=== PATIENT | female | born 1935 | race Caucasian/White ===

== ENCOUNTER → 2023-05-07 07:45 | Outpatient (REF) | payer MEDICARE, OTHER, SELFPAY ==
[2023-05-07 08:19] LABS: % Basophils 0.7 % (0-2); % Eosinophils 3.1 % (0-6); % Immature Granulocytes 0.4 % (0-0.5); % Lymphocytes 34.1 % (20.5-51.1); % Monocytes 7.9 % (1.7-9.3); % Neutrophils 53.8 % (42.2-75.2); Absolute Basophils 0.1 10^3/uL (0-0.2); Absolute Eosinophils 0.3 10^3/uL (0-0.7); Absolute Lymphocytes 2.9 10^3/uL (1.2-3.4); Absolute Monocytes 0.7 10^3/uL (0.1-0.6); Absolute Neutrophils 4.5 10^3/uL (1.4-6.5); Hematocrit 43.6 % (37.0-47.0); Hemoglobin 14.2 g/dL (12.0-16.0); Mean Corp Hgb Conc. 32.6 g/dL (33.0-37.0); Mean Corpuscular Hgb 30.2 pg (27.0-31.0); Mean Corpuscular Volume 92.8 fL (81.0-99.0); Nucleated Red Blood Cells % 0 %; Platelet Count 201 10^3/uL (130-400); Red Cell Dist. Width 14.2 % (11.5-14.5); White Blood Cell Count 8.4 10^3/uL (4.8-10.8)
[2023-05-07 08:42] LABS: ALT (SGPT) 28 U/L (0-35); AST (SGOT) 28 U/L (14-36); Albumin 4.4 g/dl (3.5-5.0); Alkaline Phosphatase 60 U/L (38-126); Blood Urea Nitrogen 15 mg/dl (7-17); Carbon Dioxide 31 mmol/L (22-30); Chloride 96 mmol/L (98-107); Glucose 111 mg/dl (70-99); HDL Cholesterol 79 mg/dl; LDL Cholesterol, Calculated 43 mg/dl; Potassium 4.3 mmol/L (3.5-5.1); Sodium 132 mmol/L (135-145); Total Bilirubin 0.7 mg/dl (0.2-1.3); Total Cholesterol 148 mg/dl (50-199); Total Protein 6.5 g/dl (6.3-8.2); Triglyceride 133 mg/dl (10-149); Very Low Density Lipoprotein 26 mg/dl (0-30); eGFR > 60.00
[2023-05-07 09:12] LABS: TSH Reflex To Free T4 0.68 uIU/ml (0.47-4.68)
== END ==
LOC: REG 07:45
PROVIDERS: ATTENDING PHYSICIAN Registered Nurse
DX: I42.0 Dilated cardiomyopathy (principal); I51.89 Other ill-defined heart diseases; I11.9 Hypertensive heart disease without heart failure; E78.5 Hyperlipidemia, unspecified
CPT/HCPCS: 36415; 80053; 80061; 84443; 85025

== ENCOUNTER → 2023-05-08 10:43 | Outpatient (REF) | payer MEDICARE, OTHER, SELFPAY ==
[2023-05-08 11:21] LABS: Blood Urea Nitrogen 16 mg/dl (7-17); Calcium 9.1 mg/dl (8.4-10.2); Carbon Dioxide 30 mmol/L (22-30); Chloride 96 mmol/L (98-107); Glucose 99 mg/dl (70-99); Potassium 4.4 mmol/L (3.5-5.1); Sodium 128 mmol/L (135-145); eGFR > 60.00
[2023-05-08 14:32] LABS: Osmolality Urine 315 mOsm/kg (300-900)
[2023-05-08 15:49] LABS: Urine Sodium 36 mmol/L (30-90)
== END ==
LOC: REG 10:43
PROVIDERS: ATTENDING PHYSICIAN Registered Nurse
DX: E87.1 Hypo-osmolality and hyponatremia (principal)
CPT/HCPCS: 36415; 80048; 83935; 84300

== ENCOUNTER 2023-05-09 11:02 | Emergency (ER) | payer MEDICARE, OTHER, SELFPAY ==
[2023-05-09 11:08] VITALS: BP 160/88
[2023-05-09 11:51] VITALS: BP 146/79
[2023-05-09 11:53] VITALS: BMI 19.7
[2023-05-09 12:12] LABS: % Basophils 0.6 % (0-2); % Eosinophils 1.8 % (0-6); % Immature Granulocytes 0.2 % (0-0.5); % Monocytes 6.9 % (1.7-9.3); % Neutrophils 59.5 % (42.2-75.2); Absolute Basophils 0.1 10^3/uL (0-0.2); Absolute Eosinophils 0.2 10^3/uL (0-0.7); Absolute Lymphocytes 2.9 10^3/uL (1.2-3.4); Absolute Monocytes 0.6 10^3/uL (0.1-0.6); Absolute Neutrophils 5.5 10^3/uL (1.4-6.5); Hematocrit 43.2 % (37.0-47.0); Hemoglobin 14.4 g/dL (12.0-16.0); Mean Corp Hgb Conc. 33.3 g/dL (33.0-37.0); Mean Corpuscular Hgb 30.4 pg (27.0-31.0); Mean Corpuscular Volume 91.1 fL (81.0-99.0); Nucleated Red Blood Cells % 0 %; Platelet Count 200 10^3/uL (130-400); Red Blood Cell Count 4.74 10^6/uL (4.20-5.40); Red Cell Dist. Width 13.8 % (11.5-14.5); White Blood Cell Count 9.3 10^3/uL (4.8-10.8)
[2023-05-09 12:25] LABS: ALT (SGPT) 32 U/L (0-35); AST (SGOT) 33 U/L (14-36); Albumin 4.6 g/dl (3.5-5.0); Alkaline Phosphatase 61 U/L (38-126); Blood Urea Nitrogen 18 mg/dl (7-17); Calcium 9.1 mg/dl (8.4-10.2); Carbon Dioxide 28 mmol/L (22-30); Chloride 94 mmol/L (98-107); Estimated Creatinine Clearance 56 ml/min; Glucose 109 mg/dl (70-99); Potassium 4.4 mmol/L (3.5-5.1); Sodium 127 mmol/L (135-145); Total Bilirubin 0.8 mg/dl (0.2-1.3); Total Protein 6.7 g/dl (6.3-8.2); eGFR > 60.00
[2023-05-09 12:30] LABS: Osmolality Serum 273 mOsm/kg (275-300)
--- NOTE | 2023-05-09 13:15 | ED.GENMED ---
History of Present Illness
General
Chief Complaint: Abnormal Lab Value
Source: patient
Time Seen by Provider: 05/09/23 11:37
Travel History
Have you had any contact with someone who has COVID-19?: No
Do you have any symptoms of coronavirus? Fever > 100 degrees, chills, cough, shortness of breath, sore throat, loss of taste or smell, muscle aches, or headache?: No
History of Present Illness
History of Present Illness:
87-year-old female with past medical history of hypertension presenting the emergency department for evaluation of low sodium that was reportedly found on outpatient lab done a few days ago, had repeat labs done yesterday which showed continued low
sodium so was called by primary care provider who advised patient go to the ER for further evaluation. Patient states she is completely asymptomatic and has no other concerns at this time and states that if her provider had not told her to come to
the emergency department she would be at home presently. Patient denies any fevers or recent illnesses, nausea, vomiting, change in oral intake. Patient states that she does not use sodium when she cooks and tries to eat a low-sodium diet due to
her history of hypertension.
Past History
Past History
ED Past Medical History: Cancer and HTN
ED Past Surgical History: Gynecological and Other (Right axillary lymph node dissection)
Social History
Tobacco: Non-smoker
Alcohol: Occasional
Drug: None
Personal:
Living: with family
Employment: Retired
Review of Systems
Review of Systems
All Other Systems: ROS reviewed and negative except as documented in HPI and ROS
Phy Exam
Physical Exam
Physical Exam:
GENERAL: Alert , in no apparent distress
EYE: conjunctiva clear
NECK: Supple, no significant adenopathy.
ENT: o/p clr, mmm.
CARDIAC: Regular rate and rhythm
LUNGS: Clear breath sounds bilaterally, no acute respiratory distress, no wheezes/rales/rhonchi
NEUROLOGICAL: Alert and oriented
SKIN: Warm and dry, skin intact.
MUSCULOSKELETAL: well perfused.
PSYCH: Normal and appropriate interaction.
Scores
Heart Failure Risk
Heart Failure Risk Score: Not Applicable
Heart Score for Chest Pain Patients
STEMI patient?: Not applicable
Withdrawal Assessment of Alcohol
Withdrawal Assessment Completed?: Not applicable
Course
Orders/Labs/Results
Orders:
Orders
05/09/23 11:38
Electrocardiogram (*1) Urgent
Reason for Study: Other
Other Reason for Exam: hyponatremia
EKG- Treatment ONCE
Urinalysis Reflex To Culture Urgent
Date Specimen was Collected: 05/09/23
Time Specimen was Collected: 13:16
Urine Sodium Urgent
Date Specimen was Collected: 05/09/23
Time Specimen was Collected: 13:16
05/09/23 11:51
Complete Blood Count/With Diff Urgent
Comprehensive Metabolic Panel Urgent
Serum Osmolality Urgent
Abnormal Lab Results
05/09/23
11:51
Sodium 127 L mmol/L
(135-145)
Chloride 94 L mmol/L
(98-107)
BUN 18 H mg/dl
(7-17)
Creatinine 0.5 L mg/dL
(0.6-1.0)
Glucose 109 H mg/dl
(70-99)
Serum Osmolality 273 L mOsm/kg
(275-300)
05/09/23 11:51
05/09/23 11:51
Vital Signs
Initial and Last Documented VS:
Initial Vital Signs
Temp Pulse Resp BP Pulse Ox
98.2 F 84 18 160/88 98
05/09/23 11:08 05/09/23 11:08 05/09/23 11:08 05/09/23 11:08 05/09/23 11:08
Last Documented Vital Signs
Temp Pulse Resp BP Pulse Ox
98.2 F 84 18 146/79 97
05/09/23 11:08 05/09/23 11:08 05/09/23 11:08 05/09/23 11:51 05/09/23 11:51
MDM/Problems Addressed
Differential Diagnosis Includes:
Dehydration, SIADH, renal dysfunction, volume overload, medication interaction
MDM/Problems Addressed:
87-year-old female presenting emergency department for evaluation at the request of her primary care provider after she had low sodium on 2 separate labs done as an outpatient. Patient is asymptomatic and without concerns at this time. I reviewed
her lab work which showed an initial sodium of 132 on the and yesterday was down to 128. She had normal urine osmolality and a normal urine sodium yesterday as well. Overall I am less suspicious for an emergent pathology lack of symptoms and
that this can continue to be managed as an outpatient but will recheck labs and discuss with nephrology if need be.
*Pulse Oximetry
Patient hypoxic: no
*EKG
Interpreted by ED Provider?: Yes
Comparison EKG: changes noted
Heart Rate: 80
Rate: normal
Rhythm: sinus and PAC's
QRS Pattern: left vent hypertrophy
*Critical Care Note
Total Time (30-74mins, 75-104mins- exclusive of procedures): Not Applicable
Data Reviewed
Review of Other/Old Records Reveals: Labs
Patient Management
Discussion with other providers: PCP and Consulting Sales Executive
Escalation/DeEscalation of care consider admission/obs:
Patient's sodium today is 127 which is slightly lower than 128 from yesterday. Given patient is asymptomatic I still feel she does not need to be admitted so case was discussed with the on-call student affairs vice president who agrees that as long as patient is
asymptomatic and be discharged home but does recommend a 40 ounce per day fluid restriction and if needed can be treated with 20 mg of Lasix daily as well. Given patient is asymptomatic and not showing any signs of volume overload I did not feel
comfortable with sending the patient home with Lasix myself. I notified patient's primary care provider, Robbi Workman, of nephrology's recommendations and he has an appointment with the patient for early next week. Patient is aware of return
precautions emergency department as well as nephrology's recommendations. She feels comfortable with being discharged home and will return to the emergency department with any other concerns.
ED Attending Note
-
Portions of this chart may have been created with voice recognition software.� Occasional wrong word or��sound alike� substitutions may have occurred due to the inherent limitations of voice recognition software.
Discharge Plan
Departure
Patient Disposition: Home (Routine Discharge)
Date of Disposition: 05/09/23
Time of Disposition: 13:15
Patient with high blood pressure during this ER visit?: Yes
Discharge Problem:
Hyponatremia
Instructions: Hyponatremia (DC)
Prescriptions:
No Action
cyanocobalamin (vitamin B-12) [Vitamin B-12] 1,000 mcg Tablet
1,000 mcg PO DAILY
ascorbic acid (vitamin C) [Vitamin C] 500 MG tablet
500 mg PO DAILY
cholecalciferol (vitamin D3) 5,000 UNIT tablet,disintegrating
5,000 unit PO DAILY
Farxiga 10 mg Tablet
10 mg PO DAILY Qty: 30 0RF
atorvastatin 40 mg Tablet
40 mg PO QPM Qty: 30 0RF
aspirin 81 mg Tablet,Chewable
81 mg PO DAILY Qty: 60 0RF
lisinopril 5 mg Tablet
5 mg PO DAILY Qty: 30 0RF
metoprolol succinate 25 mg Tablet Extended Release 24 Hr
37.5 mg PO BID Qty: 90 0RF
Referrals:
Dinesh Workman CRNP [Family Provider] - Follow up in 1 week
Interventions
Interventions:
*Risk Screen - Suicide Last Done: 05/09/23 11:08
*General Assessment Last Done: 05/09/23 11:08
*Neglect/Abuse Screening Last Done: 05/09/23 11:08
*ED COVID-19 Vaccine History Last Done: 05/09/23 11:08
== END 2023-05-09 13:39 | disposition home or self-care (01) ==
LOC: EMR 11:02
PROVIDERS: Physician Assistant Medical; EMERGENCY PHYSICIAN Emergency Medicine; FAMILY PHYSICIAN Registered Nurse
DX: E87.1 Hypo-osmolality and hyponatremia (principal); I10 Essential (primary) hypertension; Z85.9 Personal history of malignant neoplasm, unspecified; Z79.82 Long term (current) use of aspirin
CPT/HCPCS: 99283; 80053; 83930; 85025; 93005

== ENCOUNTER → 2023-05-15 09:01 | Outpatient (REF) | payer MEDICARE, OTHER, SELFPAY ==
[2023-05-15 10:20] LABS: Blood Urea Nitrogen 21 mg/dl (7-17); Calcium 9.7 mg/dl (8.4-10.2); Carbon Dioxide 31 mmol/L (22-30); Chloride 94 mmol/L (98-107); Glucose 108 mg/dl (70-99); Potassium 4.3 mmol/L (3.5-5.1); Sodium 133 mmol/L (135-145); eGFR > 60.00
[2023-05-15 10:49] LABS: Cortisol, Random 17.1 ug/dl
== END ==
LOC: REG 09:01
PROVIDERS: ATTENDING PHYSICIAN Registered Nurse
DX: E87.1 Hypo-osmolality and hyponatremia (principal)
CPT/HCPCS: 36415; 80048; 82533

== ENCOUNTER → 2023-05-29 09:18 | Outpatient (REF) | payer MEDICARE, OTHER, SELFPAY | LOC: HWRAD 09:18 | PROVIDERS: ATTENDING PHYSICIAN Internal Medicine Hematology & Oncology; FAMILY PHYSICIAN Registered Nurse | DX: C91.10 Chronic lymphocytic leukemia of B-cell type not having achieved remission (principal); C79.89 Secondary malignant neoplasm of other specified sites | CPT/HCPCS: 71260; 74177; Q9967 ==

== ENCOUNTER → 2023-05-31 07:31 | Outpatient (REF) | payer MEDICARE, OTHER, SELFPAY ==
[2023-05-31 09:15] LABS: ALT (SGPT) 27 U/L (0-35); AST (SGOT) 30 U/L (14-36); Albumin 4.5 g/dl (3.5-5.0); Alkaline Phosphatase 69 U/L (38-126); Blood Urea Nitrogen 19 mg/dl (7-17); Calcium 9.7 mg/dl (8.4-10.2); Carbon Dioxide 31 mmol/L (22-30); Chloride 97 mmol/L (98-107); Glucose 101 mg/dl (70-99); Potassium 4.7 mmol/L (3.5-5.1); Sodium 136 mmol/L (135-145); Total Bilirubin 0.8 mg/dl (0.2-1.3); Total Protein 6.5 g/dl (6.3-8.2); eGFR > 60.00
[2023-05-31 09:47] LABS: Cortisol, Random 20.7 ug/dl
== END ==
LOC: REG 07:31
PROVIDERS: ATTENDING PHYSICIAN Internal Medicine Endocrinology, Diabetes & Metabolism; FAMILY PHYSICIAN Registered Nurse
DX: E87.1 Hypo-osmolality and hyponatremia (principal)
CPT/HCPCS: 36415; 80053; 82533

== ENCOUNTER 2023-05-31 08:02 | Emergency (ER) | payer MEDICARE, OTHER, SELFPAY ==
[2023-05-31 08:07] VITALS: BP 135/87
--- NOTE | 2023-05-31 09:01 | ED.GENMED ---
History of Present Illness
<Cathy Lerma PA-C - Last Filed: 05/31/23 10:12>
General
Chief Complaint: Skin Problem
Source: patient and records
Exam Limitations: none
Time Seen by Provider: 05/31/23 09:00
Nursing documentation reviewed up to this point in time: agreed with
Travel History
Have you had any contact with someone who has COVID-19?: No
Do you have any symptoms of coronavirus? Fever > 100 degrees, chills, cough, shortness of breath, sore throat, loss of taste or smell, muscle aches, or headache?: No
History of Present Illness
History of Present Illness:
87 y/o female with a PMH of HTN, HLP, skin cancer presenting emergency department with a small red ector on her right knee that she noticed a few days ago. Patient states that she noticed the ector a few days ago. She states that the rash is not
painful, and has not spread. Patient denies any pain in the knee. Patient denies any fevers or chills, nausea or vomiting. Patient denies any diarrhea, headaches. Patient has never had anything like this before. Patient does have a history of
melanoma on her right arm, has had no other problems with her skin. Patient no longer follows with dermatology. Patient denies any new medications. Patient denies any chest pain, trouble breathing. Patient denies any trouble ambulating.
Past History
<Cathy Lerma PA-C - Last Filed: 05/31/23 10:12>
Past History
ED Past Medical History: Cancer and HTN
ED Past Surgical History: Gynecological and Other (Right axillary lymph node dissection)
Social History
Tobacco: Non-smoker
Alcohol: Occasional
Drug: None
Personal:
Living: with family
Employment: Retired
Review of Systems
<Cathy Lerma PA-C - Last Filed: 05/31/23 10:12>
Review of Systems
All Other Systems: ROS reviewed and negative except as documented in HPI and ROS
Phy Exam
<Cathy Lerma PA-C - Last Filed: 05/31/23 10:12>
Physical Exam
Physical Exam:
Vitals: Patients vital signs are stable
General: Patient is well appearing and in no acute distress
Skin: Warm and dry. There is a small 1 cm suprapatellar erythematous patch located on the right knee. No warmth, no other rashes or lesions.
Head: Normocephalic, atraumatic
Cardiac: Regular Rate
[place] Vascular: No lower extremity edema. 2+ DP pulses b/l.
Pulm: Normal respiratory effort
Musculoskeletal: Patient has full range of motion of b/l lower extremities. Normal gait. Patient has no tenderness to palpation of the right knee joint. No swelling of the right knee.
Neuro: No focal neurologic deficits.
Course
<Cathy Lerma PA-C - Last Filed: 05/31/23 10:12>
Vital Signs
Initial and Last Documented VS:
Initial Vital Signs
Temp Pulse BP Pulse Ox
97.9 F 89 135/87 98
05/31/23 08:07 05/31/23 08:07 05/31/23 08:07 05/31/23 08:07
Last Documented Vital Signs
Temp Pulse BP Pulse Ox
97.9 F 89 135/87 98
05/31/23 08:07 05/31/23 08:07 05/31/23 08:07 05/31/23 08:07
<Gabriel Lea DO - Last Filed: 05/31/23 10:17>
Vital Signs
Initial and Last Documented VS:
Initial Vital Signs
Temp Pulse BP Pulse Ox
97.9 F 89 135/87 98
05/31/23 08:07 05/31/23 08:07 04/12/24 08:07 05/31/23 08:07
Last Documented Vital Signs
Temp Pulse BP Pulse Ox
97.9 F 89 135/87 98
05/31/23 08:07 05/31/23 08:07 05/31/23 08:07 05/31/23 08:07
<Cathy Lerma PA-C - Last Filed: 05/31/23 10:12>
MDM/Problems Addressed
Differential Diagnosis Includes:
ddx include abrasion, cellulitis, basal cell carcinoma, contact dermatitis
MDM/Problems Addressed:
skin lesion
Chronic conditions affecting care: HTN and Cancer
Acute Exacerbation and/or Progression of Chronic Illness: HTN and Cancer
<Cathy Lerma PA-C - Last Filed: 05/31/23 10:12>
*Pulse Oximetry
Patient hypoxic: no
*Critical Care Note
Total Time (30-74mins, 75-104mins- exclusive of procedures): Not Applicable
Data Reviewed
Review of Other/Old Records Reveals: Records (reviewed ER physician documentation from 05/09/23, 12/27/2022) and Discharge Summary (no hospital discharge summaries [facility] review)
Source: patient and records
<Cathy Lerma PA-C - Last Filed: 05/31/23 10:12>
Patient Management
Escalation/DeEscalation of care consider admission/obs:
87 y/o female with a PMH of HTN, HLP, skin cancer presenting emergency department with a small red ector on her right knee that she noticed a few days ago. Patient states that she noticed the ector a few days ago. She states that the rash is not
painful, and has not spread. On physical exam, there small 1 cm suprapatellar erythematous patch located on the right knee. History and physical exam not consistent with cellulitis. Lesion most suspicious for small rash or abrasion, but given hx of
skin cancer, we have provided patient with dermatology follow up for further evaluation of lesion. Patient medically stable for discharge.
ED Attending Note
<Cathy Lerma PA-C - Last Filed: 05/31/23 10:12>
-
Portions of this chart may have been created with voice recognition software.� Occasional wrong word or��sound alike� substitutions may have occurred due to the inherent limitations of voice recognition software.
<Gabriel Lea DO - Last Filed: 05/31/23 10:17>
ED Attending Note
Patient seen and examined by attending physician: Yes
I performed a history and physical exam of patient and discussed management with resident, I reviewed resident's note and agree with documented findings and plan of care.: Yes
ED Attending Note:
I have reviewed and agree with history and treatment plan by Cathy Lerma. My exam revealed approximately 2 cm scattered papular erythematous region on right suprapatellar area. Do not suspect cellulitis or insect bite. Possible local
dermatitis. Will have patient follow-up with dermatology. Return precautions given. No signs of trauma.
Discharge Plan
Departure
Patient Disposition: Home (Routine Discharge)
Date of Disposition: 05/31/23
Time of Disposition: 09:51
Patient with high blood pressure during this ER visit?: Yes
Condition: Good
Discharge Problem:
Skin rash
Instructions: Skin Abrasions, Skin Rash (DC), BLOOD PRESSURE
Prescriptions:
No Action
cyanocobalamin (vitamin B-12) [Vitamin B-12] 1,000 mcg Tablet
1,000 mcg PO DAILY
ascorbic acid (vitamin C) [Vitamin C] 500 MG tablet
500 mg PO DAILY
cholecalciferol (vitamin D3) 5,000 UNIT tablet,disintegrating
5,000 unit PO DAILY
Farxiga 10 mg Tablet
10 mg PO DAILY Qty: 30 0RF
atorvastatin 40 mg Tablet
40 mg PO QPM Qty: 30 0RF
aspirin 81 mg Tablet,Chewable
81 mg PO DAILY Qty: 60 0RF
lisinopril 5 mg Tablet
5 mg PO DAILY Qty: 30 0RF
metoprolol succinate 25 mg Tablet Extended Release 24 Hr
37.5 mg PO BID Qty: 90 0RF
Referrals:
Dinesh Workman CRNP [Family Provider] -
Adolfo Otoole MD [Consulting Staff] - Call in 1-3 days for appt
Activity Restrictions/Additional Instructions:
Please call the attached number to schedule an appointment for dermatology evaluation.
Please follow up with your primary care provider.
Please return to the emergency department should the rash become painful, should you develop fevers or chills, should the rash spread, or should you develop any other concerning signs or symptoms.
Interventions
Interventions:
*General Assessment Last Done: 05/31/23 10:00
*Nursing Disposition Last Done: 05/31/23 10:00
ED-Musculoskeletal Assessment Last Done: 05/31/23 09:17
ED-Skin Assessment Last Done: 05/31/23 09:17
Discharge Date and Time
Discharge Date/Time: 05/31/23 10:00
Print Language: [id number]
== END 2023-05-31 10:00 | disposition home or self-care (01) ==
LOC: EMR 08:02
PROVIDERS: EMERGENCY PHYSICIAN Emergency Medicine; FAMILY PHYSICIAN Registered Nurse
DX: R21 Rash and other nonspecific skin eruption (principal); I10 Essential (primary) hypertension; Z85.820 Personal history of malignant melanoma of skin
CPT/HCPCS: 99281

== ENCOUNTER → 2023-06-07 08:06 | Outpatient (REF) | payer MEDICARE, OTHER, SELFPAY ==
[2023-06-07 09:01] LABS: % Basophils 0.7 % (0-2); % Eosinophils 3.2 % (0-6); % Immature Granulocytes 0.2 % (0-0.5); % Lymphocytes 32.9 % (20.5-51.1); % Monocytes 7.5 % (1.7-9.3); % Neutrophils 55.5 % (42.2-75.2); Absolute Basophils 0.1 10^3/uL (0-0.2); Absolute Eosinophils 0.3 10^3/uL (0-0.7); Absolute Lymphocytes 2.7 10^3/uL (1.2-3.4); Absolute Monocytes 0.6 10^3/uL (0.1-0.6); Absolute Neutrophils 4.5 10^3/uL (1.4-6.5); Hematocrit 42.5 % (37.0-47.0); Hemoglobin 14.1 g/dL (12.0-16.0); Mean Corp Hgb Conc. 33.2 g/dL (33.0-37.0); Mean Corpuscular Hgb 30.9 pg (27.0-31.0); Mean Platelet Volume 9.2 fL (7.4-10.4); Nucleated Red Blood Cells % 0 %; Platelet Count 190 10^3/uL (130-400); Red Blood Cell Count 4.57 10^6/uL (4.20-5.40); Red Cell Dist. Width 14.1 % (11.5-14.5); White Blood Cell Count 8.1 10^3/uL (4.8-10.8)
[2023-06-07 09:31] LABS: ALT (SGPT) 24 U/L (0-35); AST (SGOT) 29 U/L (14-36); Albumin 4.4 g/dl (3.5-5.0); Alkaline Phosphatase 62 U/L (38-126); Blood Urea Nitrogen 17 mg/dl (7-17); Calcium 9.7 mg/dl (8.4-10.2); Carbon Dioxide 30 mmol/L (22-30); Chloride 98 mmol/L (98-107); Glucose 101 mg/dl (70-99); Sodium 134 mmol/L (135-145); Total Bilirubin 0.5 mg/dl (0.2-1.3); Total Protein 6.4 g/dl (6.3-8.2); eGFR > 60.00
== END ==
LOC: REG 08:06
PROVIDERS: ATTENDING PHYSICIAN Internal Medicine Hematology & Oncology
DX: C91.10 Chronic lymphocytic leukemia of B-cell type not having achieved remission (principal); C79.89 Secondary malignant neoplasm of other specified sites
CPT/HCPCS: 36415; 80053; 85025

== ENCOUNTER 2023-06-18 07:10 | Emergency (ER) | payer MEDICARE, OTHER, SELFPAY ==
[2023-06-18 07:20] VITALS: BP 150/82
--- NOTE | 2023-06-18 08:03 | ED.GENMED ---
History of Present Illness
General
Chief Complaint: Skin Problem
Time Seen by Provider: 06/18/23 08:03
Travel History
Have you had any contact with someone who has COVID-19?: No
Do you have any symptoms of coronavirus? Fever > 100 degrees, chills, cough, shortness of breath, sore throat, loss of taste or smell, muscle aches, or headache?: No
History of Present Illness
History of Present Illness:
HPI: The patient presents due to concerns of redness at the right knee. 2 weeks ago, the patient fell including striking the right knee. She has some vague erythema without warmth or tenderness and no fevers and was concerned about the possibility
of infection.
EXAM:
GENERAL: Well appearing in no distress
HEENT: Moist oral mucosa
CARDIOVASCULAR: No murmurs, normal heart rate, regular rhythm, No chest wall tenderness
PULMONARY: No respiratory distress, breath sounds are clear and equal
ABDOMEN: Soft with no peritoneal signs, no tenderness
NEUROLOGIC: Excellent strength all extremities, no coordination deficits
PSYCHIATRIC: Appropriate mental status, normal insight and judgement
EXTREMITIES: Nontender, no edema, moves all extremities equally the function of the right knee is excellent with excellent quadriceps and patellar tendon, there is no bony tenderness
SKIN: There is some very faint pink patchy erythema overlying the right quadriceps tendon
TIME OF INITIAL ENCOUNTER: 8:15 AM
NUMBER AND COMPLEXITY OF PROBLEMS ADDRESSED AT THE ENCOUNTER
� Chronic conditions affecting care: Lung cancer, melanoma, high blood pressure, CLL
� Acute Exacerbation and/or Progression of Chronic Illness: This is an acute problem
� Differential Diagnosis includes: Local inflammation from trauma, cellulitis, quadriceps tendon rupture very unlikely based on physical examination, fracture very unlikely based on lack of any bony tenderness
AMOUNT AND/OR COMPLEXITY OF DATA TO BE REVIEWED AND ANALYZED
� I performed an independent evaluation of and my interpretation is:
EKG:
CT:
X-rays:
Laboratory Studies:
Other:
� Review of other/old records: I reviewed CT imaging of the chest abdomen pelvis from 2 weeks ago
� Clinical information was obtained by an independent historian: None needed
� Prescriptions/Medications Considered but not given:
� Further testing considered but not performed: Considered imaging however the examination of the right knee is unremarkable
RISK OF COMPLICATIONS AND/OR MORBIDITY OR MORTALITY OF PATIENT MANAGEMENT
� Social determinants of health affecting care: Lives at home, will be traveling to [place] soon
� Discussion with other providers: None needed
� Escalation of care including admission/observation vs risk of discharge considered: As patient will be leaving the area traveling, I have given a prescription for an antibiotic times persist/worsen however currently I see no
evidence for cellulitis. She is very well-appearing
Past History
Past History
ED Past Medical History: Cancer and HTN
ED Past Surgical History: Gynecological and Other (Right axillary lymph node dissection)
Social History
Tobacco: Non-smoker
Alcohol: Occasional
Drug: None
Personal:
Living: with family
Employment: Retired
Phy Exam
Physical Exam
Physical Exam:
See HPI
Course
Vital Signs
Initial and Last Documented VS:
Initial Vital Signs
Temp Pulse Resp BP Pulse Ox
97.7 F 79 20 150/82 99
06/18/23 07:20 06/18/23 07:20 06/18/23 07:20 06/18/23 07:20 06/18/23 07:20
Last Documented Vital Signs
Temp Pulse Resp BP Pulse Ox
97.7 F 79 20 150/82 99
06/18/23 07:20 06/18/23 07:20 06/18/23 07:20 06/18/23 07:20 06/18/23 07:20
*Critical Care Note
Total Time (30-74mins, 75-104mins- exclusive of procedures): Not Applicable
ED Attending Note
-
Portions of this chart may have been created with voice recognition software.� Occasional wrong word or��sound alike� substitutions may have occurred due to the inherent limitations of voice recognition software.
Discharge Plan
Departure
Patient Disposition: Home (Routine Discharge)
Date of Disposition: 06/18/23
Time of Disposition: 08:18
Patient with high blood pressure during this ER visit?: Yes
Discharge Problem:
Inflammation around joint
Instructions: Skin Rash (DC)
Prescriptions:
New
cephalexin 500 mg capsule
500 mg PO TID Qty: 21 0RF
No Action
cyanocobalamin (vitamin B-12) [Vitamin B-12] 1,000 mcg Tablet
1,000 mcg PO DAILY
ascorbic acid (vitamin C) [Vitamin C] 500 MG tablet
500 mg PO DAILY
cholecalciferol (vitamin D3) 5,000 UNIT tablet,disintegrating
5,000 unit PO DAILY
Farxiga 10 mg Tablet
10 mg PO DAILY Qty: 30 0RF
atorvastatin 40 mg Tablet
40 mg PO QPM Qty: 30 0RF
aspirin 81 mg Tablet,Chewable
81 mg PO DAILY Qty: 60 0RF
lisinopril 5 mg Tablet
5 mg PO DAILY Qty: 30 0RF
metoprolol succinate 25 mg Tablet Extended Release 24 Hr
37.5 mg PO BID Qty: 90 0RF
Activity Restrictions/Additional Instructions:
Cellulitis is the term that we use for infection underneath the skin. Although there is a little bit of redness there is no warmth or tenderness; I do not think he truly has cellulitis however I did send a prescription to your pharmacy in case
symptoms worsen especially since you are leaving the area. Return here if worse.
Interventions
Interventions:
*Risk Screen - Suicide Last Done: 06/18/23 08:05
*General Assessment Last Done: 06/18/23 08:05
*Neglect/Abuse Screening Last Done: 06/18/23 08:05
ED- Fall Risk Assessment Last Done: 06/18/23 08:05
*ED COVID-19 Vaccine History Last Done: 06/18/23 08:05
ED-Skin Assessment Last Done: 06/18/23 08:05
Discharge Date and Time
Print Language: SERBIAN
[2023-06-18 08:05] VITALS: BMI 19.6
--- NOTE | 2023-06-18 08:26 | EDRN ---
Reviewed discharge instructions with patient. Verbalized understanding.
== END 2023-06-18 08:29 | disposition home or self-care (01) ==
LOC: EMR 07:10
PROVIDERS: EMERGENCY PHYSICIAN Emergency Medicine; FAMILY PHYSICIAN Registered Nurse
DX: M25.461 Effusion, right knee (principal); I10 Essential (primary) hypertension
CPT/HCPCS: 99283

== ENCOUNTER → 2023-07-22 11:13 | Outpatient (REF) | payer MEDICARE, OTHER, SELFPAY | LOC: RCS 11:13 | PROVIDERS: ATTENDING PHYSICIAN Internal Medicine Cardiovascular Disease; FAMILY PHYSICIAN Registered Nurse | DX: I42.8 Other cardiomyopathies (principal); I77.810 Thoracic aortic ectasia | CPT/HCPCS: 93306 ==

== ENCOUNTER → 2023-11-18 07:55 | Outpatient (REF) | payer MEDICARE, OTHER, SELFPAY ==
[2023-11-18 08:19] LABS: % Basophils 0.6 % (0-2); % Eosinophils 3.3 % (0-6); % Immature Granulocytes 0.2 % (0-0.5); % Lymphocytes 46.5 % (20.5-51.1); % Monocytes 6.2 % (1.7-9.3); % Neutrophils 43.2 % (42.2-75.2); Absolute Basophils 0.1 10^3/uL (0-0.2); Absolute Eosinophils 0.3 10^3/uL (0-0.7); Absolute Lymphocytes 3.8 10^3/uL (1.2-3.4); Absolute Monocytes 0.5 10^3/uL (0.1-0.6); Absolute Neutrophils 3.5 10^3/uL (1.4-6.5); Hematocrit 43.1 % (37.0-47.0); Hemoglobin 14.7 g/dL (12.0-16.0); Mean Corp Hgb Conc. 34.1 g/dL (33.0-37.0); Mean Corpuscular Hgb 30.6 pg (27.0-31.0); Mean Corpuscular Volume 89.8 fL (81.0-99.0); Mean Platelet Volume 9.1 fL (7.4-10.4); Nucleated Red Blood Cells % 0 %; Platelet Count 208 10^3/uL (130-400); Red Cell Dist. Width 13.5 % (11.5-14.5); White Blood Cell Count 8.1 10^3/uL (4.8-10.8)
[2023-11-18 09:11] LABS: ALT (SGPT) 22 U/L (0-35); AST (SGOT) 27 U/L (14-36); Albumin 4.7 g/dl (3.5-5.0); Alkaline Phosphatase 42 U/L (38-126); Blood Urea Nitrogen 18 mg/dl (7-17); Calcium 9.4 mg/dl (8.4-10.2); Carbon Dioxide 29 mmol/L (22-30); Chloride 98 mmol/L (98-107); Glucose 106 mg/dl (70-99); HDL Cholesterol 82 mg/dl; LDL Cholesterol, Calculated 82 mg/dl; Potassium 4.7 mmol/L (3.5-5.1); Sodium 138 mmol/L (135-145); Total Bilirubin 0.8 mg/dl (0.2-1.3); Total Cholesterol 186 mg/dl (50-199); Total Protein 6.5 g/dl (6.3-8.2); Triglyceride 110 mg/dl (10-149); Very Low Density Lipoprotein 22 mg/dl (0-30); eGFR > 60.00
[2023-11-18 09:15] LABS: TSH Reflex To Free T4 1.02 uIU/ml (0.47-4.68)
== END ==
LOC: REG 07:55
PROVIDERS: ATTENDING PHYSICIAN Registered Nurse
DX: E78.5 Hyperlipidemia, unspecified (principal); Z00.00 Encounter for general adult medical examination without abnormal findings; Z13.220 Encounter for screening for lipoid disorders; Z13.29 Encounter for screening for other suspected endocrine disorder; Z79.899 Other long term (current) drug therapy
CPT/HCPCS: 36415; 80053; 80061; 84443; 85025

== ENCOUNTER → 2024-12-29 07:29 | Outpatient (REF) | payer MEDICARE, OTHER, SELFPAY ==
[2024-12-29 08:42] LABS: Hematocrit 45.9 % (37.0-47.0); Hemoglobin 15.4 g/dL (12.0-16.0); Mean Corp Hgb Conc. 33.6 g/dL (33.0-37.0); Mean Corpuscular Volume 90.5 fL (81.0-99.0); Nucleated Red Blood Cells % 0 %; Platelet Count 202 10^3/uL (130-400); Red Cell Dist. Width 13.3 % (11.5-14.5)
[2024-12-29 09:22] LABS: ALT (SGPT) 25 U/L (0-35); AST (SGOT) 25 U/L (14-36); Albumin 4.7 g/dl (3.5-5.0); Alkaline Phosphatase 53 U/L (38-126); Blood Urea Nitrogen 15 mg/dl (7-17); Calcium 9.3 mg/dl (8.4-10.2); Carbon Dioxide 30 mmol/L (22-30); Chloride 99 mmol/L (98-107); Glucose 110 mg/dl (70-99); HDL Cholesterol 77 mg/dl; LDL Cholesterol, Calculated 82 mg/dl; Potassium 4.5 mmol/L (3.5-5.1); Sodium 136 mmol/L (135-145); Total Protein 6.9 g/dl (6.3-8.2); Very Low Density Lipoprotein 22 mg/dl (0-30); eGFR > 60.00
[2024-12-29 09:31] LABS: Vitamin D, 25-OH*** 36.9 ng/mL (30-80)
== END ==
LOC: REG 07:29
PROVIDERS: ATTENDING PHYSICIAN Registered Nurse
DX: I10 Essential (primary) hypertension (principal); I11.9 Hypertensive heart disease without heart failure; E78.5 Hyperlipidemia, unspecified; M85.80 Other specified disorders of bone density and structure, unspecified site
CPT/HCPCS: 36415; 80053; 80061; 82306; 84443; 85025